=== PATIENT | male | born 1945 | race Caucasian/White ===

== ENCOUNTER 2016-08-23 10:06 | Inpatient (IN) | payer MEDICARE ==
[~2016-08-23] VITALS: Ht 177.8 cm; Wt 88.3 kg
[~2016-08-23 10:06] MED LIST changes: -ASPI1TAB69 PO; -CHEL50TA PO; -CO Q10CA; -CO Q200C3 PO; -D3400CAP PO; -DIME240C PO; -DIOV320T3 PO; -DIOV80TA4 PO; -FISH120014 PO; -FISH500C; -HYDR-3583 PO; -MOBI7.5T PO; -NEUR300C PO; -ROBA750T PO; -VITA500030 CHEW; -WALKER WHEELS/F1 MIS
[2016-08-23] MEDS ORDERED: DIME240C PO (10:36)
[2016-08-23] MEDS ORDERED: CO Q200C3 PO (10:36)
[2016-08-23] MEDS ORDERED: CHEL50TA PO (10:36)
[2016-08-23] MEDS ORDERED: D3400CAP PO (10:36)
[2016-08-23] MEDS ORDERED: FISH120014 PO (10:36)
[2016-08-23] MEDS ORDERED: DIOV320T3 PO (10:36)
[2016-08-23] MEDS ORDERED: ASPI1TAB69 PO (10:36)
[2016-08-31] MEDS ORDERED: METOPROLOL TARTRATE 25 MG TAB PO PRN (06:45)
[2016-08-31] MEDS ORDERED: INSULIN HUMAN REGULAR 1,000 UNITS/10 ML VIAL SQ PRN (06:45)
[2016-08-31] MEDS ORDERED: LACTATED RINGER'S 1000 ML IV PRN (06:45)
[2016-08-31] MEDS ORDERED: SODIUM CHLORID 0.9% 500 ML IV PRN (06:45)
[2016-08-31] MEDS ORDERED: POVIDONE IODINE 5% (ANTISEPSIS KIT) 4 APPLICATIONS EACH NARE PRN (06:45)
[2016-08-31] MEDS ORDERED: CHLORHEXIDINE GLUCONATE 2 % 1 PACK (2 CLOTHS) TOPICAL PRN (06:45)
[2016-08-31 06:50] VITALS: BP 138/73; PULSE 68; RESP 18; TEMP 97.8; O2SAT 98
[2016-08-31] MEDS: VANCOMYCIN HCL 1000 MG ON-CALL/NS 250 ML IV SCH ×4 (07:56→07:58)
[2016-08-31] MEDS ORDERED: THROMBIN (TOPICAL) 5,000 UNIT VIAL ONE (08:08)
[2016-08-31] MEDS ORDERED: ceFAZolin 2 GM PREMIX 50 ML ONE (08:08)
[2016-08-31] MEDS ORDERED: GENTAMICIN SULFATE 80 MG/2 ML VIAL ONE (08:09)
[2016-08-31] MEDS ORDERED: GELFOAM SIZE 100 ONE (08:09)
[2016-08-31] MEDS ORDERED: BUPIVACAINE/EPINEPHRINE 0.5% PF 30 ML VIAL ONE (08:09)
[2016-08-31] MEDS ORDERED: FAMOTIDINE 20 MG/2 ML VIAL ONE (08:34)
[2016-08-31] MEDS ORDERED: MIDAZOLAM HCL 2 MG/2 ML VIAL ONE (08:34)
[2016-08-31] MEDS ORDERED: fentaNYL CITRATE 250 MCG/5 ML AMP ONE (12:27)
[2016-08-31] MEDS ORDERED: DO NOT ADM ANY ANTICOAGULANT DRUGS PRN (12:30)
[2016-08-31] MEDS ORDERED: ACETAMINOPHEN/HYDROcodone 325 MG/10 MG TAB PO PRN (13:00)
[2016-08-31] MEDS ORDERED: MORPHINE SULFATE 4 MG/ML INJ IV PUSH PRN (13:00)
[2016-08-31] MEDS ORDERED: cloNIDine HCL 0.1 MG TAB PO/NG PRN (13:00)
[2016-08-31] MEDS ORDERED: diphenhydrAMINE HCL 50 MG/ML VIAL IV PRN (13:00)
[2016-08-31] MEDS ORDERED: CYCLOBENZAPRINE HCL 10 MG TAB PO PRN (13:00)
[2016-08-31] MEDS ORDERED: MENTHOL LOZENGE BUCCAL PRN (13:00)
[2016-08-31] MEDS ORDERED: RESP: ALBUTEROL 2.5 MG/3 ML NEB (PRN) INH (13:00)
[2016-08-31] MEDS ORDERED: ONDANSETRON HCL 4 MG/2 ML VIAL IV PRN (13:00)
[2016-08-31] MEDS ORDERED: NALOXONE HCL 0.4 MG/ML AMP IV PRN (13:00)
[2016-08-31] MEDS ORDERED: SODIUM CHLORIDE 0.9% FLUSH 5 ML FLUSH IVF PRN (13:00)
[2016-08-31] MEDS ORDERED: NON-FORMULARY DRUG (Omega-3 Fatty Acids (Fish Oil) 1 CAP) PO SCH (13:00)
[2016-08-31] MEDS ORDERED: ACETAMINOPHEN 325 MG TAB PO PRN (13:00)
[2016-08-31] MEDS: HYDROmorphone HCL PCA 6 MG/30 ML IV SCH (13:28)
[2016-08-31] MEDS: NS + KCL 20 MEQ INJ 1,000 ML IV SCH ×2 (13:28→23:11)
[2016-08-31] MEDS: PCA - TOTAL MG DILAUDID DELIVERED PER SHIFT SCH ×2 (14:00→21:17)
[2016-08-31] MEDS: SODIUM CHLORIDE 0.9% FLUSH 5 ML FLUSH IVF SCH ×2 (14:00→21:00)
[2016-08-31] MEDS ORDERED: PROPOFOL 200 MG/20 ML AMP IV ONE (14:12)
[2016-08-31] MEDS ORDERED: NORMOSOL R INJ 1,000 ML IV ONE (14:13)
[2016-08-31] MEDS ORDERED: PHENYLEPH/NS 1000 MCG/10 ML SYR IV ONE (14:13)
[2016-08-31] MEDS ORDERED: ePHEDrine/NS 25 MG/5 ML SYR IV ONE (14:13)
[2016-08-31] MEDS ORDERED: ONDANSETRON HCL 4 MG/2 ML VIAL IV PUSH ONE (14:13)
--- NOTE | 2016-08-31 15:19 | PD.CONS ---
HPI Service [facility] Consult Requested By Neurosurgery Reason for Consult Medical management Primary Care Physician Eliu Ku MD Diagnoses: History of Present Illness 71-year-old male with a history of hypertension , chronic low back pain with an outside MRI revealing severe degenerative changes, with severe loss of the space height at L5-S1 and severe facet arthropathy at L5-S1; underwent TLIF today by neurosurgery.patient failed conservative treatment including physical therapy, antiinflammatories and muscle relaxants, as well as, epidural steroid injections . Review of Systems Other 12 systems reviewed and are negative except for the ones mentioned in history of present illness Past Family Social History Allergies: Coded Allergies: Penicillin (Verified Allergy, Severe, Anaphylaxis, 08/31/16) Past Medical History Chronic low back pain Hypertension Physical Exam Vital Signs Vital Signs Date Time Temp Pulse Resp B/P Pulse Ox O2 Delivery O2 Flow Rate FiO2 08/31/16 14:30 97.7 62 14 116/56 100 Nasal Cannula 2 08/31/16 13:45 97.7 69 12 107/59 100 Nasal Cannula 2 08/31/16 13:30 97.3 62 14 114/62 100 Nasal Cannula 2 08/31/16 13:28 14 08/31/16 13:15 96.4 64 13 118/63 100 Nasal Cannula 2 08/31/16 13:00 96.0 60 13 124/57 100 Nasal Cannula 2 08/31/16 12:45 95.3 77 13 120/56 100 08/31/16 12:35 94.4 74 11 115/57 98 Nasal Cannula 3 08/31/16 06:50 97.8 68 18 138/73 98 Physical Exam GENERAL: This is a well-nourished, well-developed patient, in no apparent distress. SKIN: No rashes, ecchymoses or lesions. Cool and dry. HEAD: Atraumatic. Normocephalic. No temporal or scalp tenderness. EYES: Pupils equal round and reactive. Extraocular motions intact. No scleral icterus. No injection or drainage. ENT: Nose without bleeding, purulent drainage or septal hematoma. Throat without erythema, tonsillar hypertrophy or exudate. Uvula midline. Airway patent. NECK: Trachea midline. No JVD or lymphadenopathy. Supple, nontender, no meningeal signs. CARDIOVASCULAR: Regular rate and rhythm without murmurs, gallops, or rubs. RESPIRATORY: Clear to auscultation. Breath sounds equal bilaterally. No wheezes , rales, or rhonchi. GASTROINTESTINAL: Abdomen soft, non-tender, nondistended. No hepato-splenomegaly , or palpable masses. No guarding. MUSCULOSKELETAL: Extremities without clubbing, cyanosis, or edema. No joint tenderness, effusion, or edema noted. No calf tenderness. Negative Homans sign bilaterally. drain in place NEUROLOGICAL: Awake and alert. Cranial nerves II through XII intact. Motor and sensory grossly within normal limits. Five out of 5 muscle strength in all muscle groups. Normal speech. Laboratory Laboratory Tests Test 08/31/16 06:55 Blood Type O POSITIVE Antibody Screen NEGATIVE Blood Bank Comment Assessment and Plan Problem List: (1) Back pain ICD Code: M54.9 Status: Acute (2) Benign hypertension ICD Code: I10 Status: Acute (3) Status post laminectomy ICD Code: Z98.89 Status: Acute Assessment and Plan 71-year-old man with Lumbar back pain Status post TLIF and management per orthopedic surgery Continue current postop care and continue to hold antiplatelet therapy PT consult to treat and eval Postprocedure DVT prophylaxis per neurosurgery Hypertension Continue Diovan BPH Currently on Flomax Hyperlipidemia Continue Lipitor DVT prophylaxis: Bilateral SCDs Code Status Full code Discussed Condition With Patient Yousuf Haskins MD August 31, 2016 15:19
[2016-08-31] MEDS: ceFAZolin 2 GM PREMIX 50 ML IV SCH ×2 (15:52→23:11)
[2016-08-31 16:00] VITALS: BP 118/61; PULSE 63; RESP 18; TEMP 97.1; O2SAT 100
[2016-08-31] MEDS ORDERED: RESP: ALBUTEROL 2.5 MG/IPRATROPIUM 0.5 MG NEB (PRN) NEB (16:00)
[2016-08-31] MEDS ORDERED: ENALAPRILAT 1.25 MG/ML VIAL IV PUSH PRN (16:00)
--- NOTE | 2016-08-31 16:42 | RADRPT ---
EXAM DATE/TIME: 08/31/2016 09:22 [facility] COMPARISON: No previous studies available for comparison. INDICATIONS : Fusion L5,S1 with screws and lisa placement., MEDICAL HISTORY : None. SURGICAL HISTORY : Discectomy, lumbar. ENCOUNTER: Initial ACUITY: 1 day PAIN SCORE: Non-responsive. LOCATION: Lumbar spine. CONCLUSION: Fluoroscopic images during fusion rods and screws L5-S1. Drain also seen. Yousuf Brennan MD on August 31, 2016 at 16:39 Board Certified Radiologist. This report was verified electronically.
--- NOTE | 2016-08-31 16:47 | PD.OP ---
Operative Report Date of Surgery: August 31, 2016 Preoperative Diagnosis: Lumbar sondylosis Postoperative Diagnosis: Lumbar sondylosis Procedure: Redo L5-S1 redo laminectomy, L4-5 instrumental fixation using transpedicular screws and rods, L5-S1 posterolateral fusion using autologous bone graft and rods. Microsurgical dissection Anesthesia: general Surgeon: Reji Sanders Surveyor Instrument Assistant(s): Lucia Londono Operation and Findings: INDICATIONS FOR THE SURGICAL PROCEDURE Mr Trinidad is a 71 year-old male who presented with intractable mechanical back pain and beatrice evidence of left S1 lower extremity radiculopathy. The patient has failed maximum nonsurgical management including multiple modalities of conservative treatment as well as pain management interventions by an interventional pain specialist. A surgical decompression and arthrodhesis were indicated as a last resort. The [id number]-gt-[id number] details of the procedure, indications, alternatives, risks and potential complications were fully discussed with the patient. The patient fully understood. All his questions were answered. No guarantees were given. The patient voiced requesting the procedure and provided informed consents. He was offered the alternative of delaying the procedure and continuing with nonsurgical management. DETAILS OF THE SURGICAL PROCEDURE Prior to the procedure, the surgical incision was marked in the preoperative surgical holding room, and the procedure, risks, and potential complications revisited with the patient. Placement of electrodes for intraoperative neurophysiological monitoring was completed. The patient was taken to the operative room, and following induction of general anesthesia, endotracheal intubation was performed. A Garcia catheter, bilateral AMANDA hose and sequential compression devices were placed and kept throughout the procedure. The patient was positioned prone, over a Nasir table over a Jitendra frame. All pressure in the preoperative surgical holding room points were carefully padded with eggcrate and gel mattress. The eyes were tapped shut after ointment was applied by the anesthesiologist to prevent corneal abrasion. A Lynne hugger was placed over the exposed lower body to maintain control of the core body temperature. The electrophysiological team placed the needles and electrodes in their proper location and baseline SSEP's and motor evoked potentials were registered. The entrance to each pedicles was marked using a C arm. The lumbar region was prepped and draped in the usual sterile fashion. The surgical procedure was performed in several steps as follow: SURGICAL APPROACH Once the patient was positioned, a localizing cross-table lateral x-ray was performed with a C-arm. Two paramedian small incisions were outlined on the skin approximately 3cm from the midline. The skin incisions were made with a # 10 blade. Small bleeders were controlled with the cautery. The dissection was then carried out into deper planes and through the thoracolumbar fascia with a Bovie. The intermuscular septum was identified and the muscles were blunted dissected along the septum. The facets and transverse process of L5 and S1 were exposed and the proper anatomical landmarks were identified. A microsurgical self-retaining retractor was placed on the incision, and a localizing lateralizing cross-table x-ray was performed with an instrument underneath a lamina of the lumbar spine. There was a bilateral pars defect with gross instability of the bony structures. INSTRUMENTAL FIXATION At this point in the procedure, placement of bilateral transpedicular screws was necessary for stabilization of the spine. Initially, the entry point for the screw was selected anatomically at the junction of the facet, with the transverse process, and the pars interarticularis at L5 and at the sacrum. This was started with a TPS drill, using a 5mm cutting prabhjot, followed by the use of an awl, and then a pedicle finder. A ball-tip sounder was used to ensure the integrity of the trajectory. A tap was used to create the threads for the screws, and the trajectory was again reassessed with a ball-tip sounder. Finally bilateral transpedicular screws were carefully placed bilaterally at L5 and S1 under simultaneous AP and lateral continuous fluoroscopic visualization. An appropriate purchase was achieved with all screws. The position of each screw was assessed anatomically with an AP, lateral , oblique Xrays. An intraoperative scan view of the spine was then performed using the iso-centric c-arm. Each screw was then assessed electrophysiologically with a nerve stimulator. SURGICAL DECOMPRESSION There was significant compression of the neural structures on the left side. In order to relieve neural compression, it was necessary to perform a decompressive laminectomy, with decompression of the spinal canal and bilateral lateral recesses. Note that the scope of such decompression was significantly more extensive than the minimal exposure necessary to perform an interbody fusion, as there was extreme facet arthropathy with near complete collapse of the disk spaces and severe stenosis cause by the hypertrophic joint facets. At this point of the procedure the operative microscope was draped in the usual sterile fashion and brought to the field. The rest of the surgical procedure was performed using microdissection technique with the exception of the closure. Under the operating microscope, a decompressive laminectomy was carried out on the left side at L5-S1 as follow: The laminae, base of the spinous processes and facets were carefully drilled exposing the ligamentum flavum. The facets were abnormal with a bilateral pars defect and gross mechanical instability. A disk protusion was seen compressing the exiting S1 nerve root. The ligamentum flavum appeared hypertrophic, resulting on mass effect on the dorsal surface of the neural structures. The superior free border of the ligamentum flavum was elevated with a ligament dissector and the ligamentum flavum was removed with a 3 and 4 mm Kerrison forceps. The ligament was very adherent to the dural sac and during the dissection, ans extreme care was taken during the dissection. The L5 and S1 exiting nerve roots were identified, the patient had a conjointednerve root. A foraminotomy was performed with a Kerrison in their trajectory towards the neural foramen. Epidural veins located laterally to the dural sac were coagulated with the bipolar cautery, and then incised using microscissors. Gentle medial retraction of the dural sac allowed me to expose the disc space for the discectomy. Upon completion of the discectomy, an excellent decompression of the neural structures was achieved. Increased motion was noted thorough the procedure, which was consistent with mechanical instability. INTERBODY ARTHRODHESIS At this point of the procedure, the annulus fibrosus of the disk was carefully coagulated with a bipolar cautery and incised using an 11 bladed knife. Then, a microdiscectomy was carried out in a standard fashion. Again, due to the presence of a coinjointed nerve root, there was no enough space to place a cage for the interbody fusion, depite maximun effort. The decompression was again assessed anatomically with a probe POSTEROLATERAL FUSION The posterolateral fusion is a critical component to the procedure, to prevent future fatigue and failure of the instrumental fixation. Initially, the transverse processes of the vertebral bodies, lateral surface of the facets and the lateral gutters of the spine were carefully cleaned, eliminating all soft tissue and muscle attachments. The area was then irrigated with a large amount of antibiotic solution. Subsequently, the transverse processes, lateral surface of the facets, and lateral gutters of the spine were thoroughly decorticated using the TPS drill with a 5mm cutting prabhjot, exposing cancellous bone, in preparation for the posterolateral fusion. The incision was again irrigated with antibiotic solution. Then, the posterolateral fusion was then performed by carefully packing the lateral gutters of the spine at L5-S1 with autologous bone combined with demineralized bone matrix. I packed as much bone as possible. COMPLETION OF THE INSTRUMENTATION AND CLOSURE The rods were brought to the field, applied to all the screws, and the screw caps were sequentially applied. Compression was performed between the pedicle screws, and final tightening of the screws was completed using a torque wrench. The incision was again thoroughly irrigated with several liters of antibiotic solution, and hemostasis secured with the bipolar cautery. A Valsalva Maneuver performed by the anesthesiologist failed to show any evidence of cerebrospinal fluid leak or bleeding. A 7 mm Nasir-Santana drain was left in the epidural space and externalized through a separate stab incision. The incision was then closed in planes. 0 Vicryl was used in an interrupted fashion to close the thoracolumbar fascia and the superficial fascia. The subcutaneous tissue was then approximated using 3-0 Vicryl in an interrupted fashion. Special care was taken to avoid space. The skin was then closed with 4-0 Vicryl in a running, subcuticular fashion. Each plane of closure was irrigated with antibiotic solution. At the end of the procedure the sponge, needle and instrument counts were all correct. Estimated blood loss was 200 cc. No blood transfusion was given. The entire procedure was performed using continuous electrophysiological monitoring of the somatosensorial evoked potentials and EMG. The patient received prophylactic antibiotics. The patient was then extubated and transferred to the recovery room in stable condition. Reji Sanders MD August 31, 2016 16:46
[2016-08-31 20:36] VITALS: BP 115/57; PULSE 88; RESP 18; TEMP 98.3; O2SAT 97
[2016-08-31] MEDS ORDERED: DIMETHYL FUMARATE 240 MG PO SCH (21:00)
[2016-08-31] MEDS: DOCUSATE SODIUM 100 MG CAP PO SCH (21:14)
[2016-08-31] MEDS: TAMSULOSIN HCL 0.4 MG CAP PO SCH (21:14)
[2016-08-31] MEDS: MAGNESIUM HYDROXIDE SUSP 30 ML CUP PO PRN (21:17)
[2016-09-01] VITALS (8 sets, daily range): BP systolic 111–130; BP diastolic 53–62; PULSE 82–96; RESP 17–18; TEMP 97.8–101; O2SAT 4–97
[2016-09-01] MEDS: HYDROmorphone HCL PCA 6 MG/30 ML IV SCH ×2 (00:55→18:44)
[2016-09-01] MEDS: PCA - TOTAL MG DILAUDID DELIVERED PER SHIFT SCH ×2 (06:00→22:00)
[2016-09-01] MEDS: SODIUM CHLOR 0.9% 1000 ML INJ 1,000 ML IV SCH (06:31)
[2016-09-01 07:04] LABS: AUTOMATED NEUTROPHIL # 4.8 TH/MM3 (1.8-7.7); BASOPHIL % 0.4 % (0.0-2.0); EOSINOPHIL # 0.1 TH/MM3 (0-0.4); EOSINOPHIL % 1.6 % (0.0-4.0); HEMATOCRIT 31.8 % (39.0-51.0); HEMO FLAGS DIFF FINAL; LYMPH % 9.7 % (9.0-44.0); LYMPHOCYTE # 0.6 TH/MM3 (1.0-4.8); MEAN CELL VOLUME 89.6 FL (80.0-100.0); MEAN CORPUSCULAR HEMOGLOBIN 30.7 PG (27.0-34.0); MEAN CORPUSCULAR HGB CONC 34.3 % (32.0-36.0); MONO % 11.5 % (0.0-8.0); NEUT % 76.8 % (16.0-70.0); PLATELET COUNT 181 TH/MM3 (150-450); RED BLOOD COUNT 3.55 MIL/MM3 (4.50-5.90); WHITE BLOOD COUNT 6.3 TH/MM3 (4.0-11.0)
[2016-09-01 07:26] LABS: BICARBONATE 27.3 MEQ/L (21.0-32.0); POTASSIUM 4.5 MEQ/L (3.5-5.1)
[2016-09-01] MEDS: HYDROCHLOROTHIAZIDE 12.5 MG CAP PO SCH (08:18)
[2016-09-01] MEDS: MAGNESIUM HYDROXIDE SUSP 30 ML CUP PO PRN ×2 (08:18→22:09)
[2016-09-01] MEDS: VALSARTAN 160 MG TAB PO SCH (08:19)
[2016-09-01] MEDS: TAMSULOSIN HCL 0.4 MG CAP PO SCH ×2 (08:20→22:08)
[2016-09-01] MEDS: MULTIVITAMIN TAB PO SCH (08:21)
[2016-09-01] MEDS: CHOLECALCIFEROL (VIT D3) 400 UNIT TAB PO SCH (08:21)
[2016-09-01] MEDS: ACETAMINOPHEN/HYDROcodone 325 MG/10 MG TAB PO PRN ×2 (08:21→18:41)
[2016-09-01] MEDS: DOCUSATE SODIUM 100 MG CAP PO SCH ×2 (08:21→22:08)
[2016-09-01] MEDS: PRAVASTATIN SOD 40 MG TAB PO SCH (08:21)
[2016-09-01] MEDS: PANTOPRAZOLE SODIUM 40 MG VIAL IVP SCH (08:22)
[2016-09-01] MEDS: ceFAZolin 2 GM PREMIX 50 ML IV SCH (08:31)
[2016-09-01] MEDS ORDERED: MAGNESIUM PO SCH (09:00)
[2016-09-01] MEDS ORDERED: NON-FORMULARY DRUG (Zinc Gluconate (Zinc) 1 TAB) PO SCH (09:00)
[2016-09-01] MEDS ORDERED: COENZYME Q10 PO SCH (09:00)
[2016-09-01] MEDS ORDERED: HYDR-3583 PO (09:07)
--- NOTE | 2016-09-01 10:15 | HHI.NSPN ---
(Manuela Irby) Note Status Status: Progress Note (Manuela Irby) Interval History Interval History Mr. Trinidad underwent a redo L5-S1 redo laminectomy, L4-5 instrumental fixation using transpedicular screws and rods. 09/01: Doing well, pain currently controlled. Reports he has a history of urinary retention postop due to BPH. (Manuela Irby) Labs, Micro, & Vital Signs Results Date Time Temp Pulse Resp B/P Pulse Ox O2 Delivery O2 Flow Rate FiO2 09/01/16 08:00 100.4 87 18 115/54 93 09/01/16 06:00 17 09/01/16 04:08 99.2 86 17 112/53 97 09/01/16 00:55 18 09/01/16 00:00 99.1 84 18 111/54 96 08/31/16 21:17 18 08/31/16 20:36 98.3 88 18 115/57 97 08/31/16 19:06 Room Air 08/31/16 16:00 97.1 63 18 118/61 100 08/31/16 14:30 97.7 62 14 116/56 100 Nasal Cannula 2 08/31/16 13:45 97.7 69 12 107/59 100 Nasal Cannula 2 08/31/16 13:30 97.3 62 14 114/62 100 Nasal Cannula 2 08/31/16 13:28 14 08/31/16 13:15 96.4 64 13 118/63 100 Nasal Cannula 2 08/31/16 13:00 96.0 60 13 124/57 100 Nasal Cannula 2 08/31/16 12:45 95.3 77 13 120/56 100 08/31/16 12:35 94.4 74 11 115/57 98 Nasal Cannula 3 09/01/16 07:00 Intake Total 5545 ml Output Total 2410 ml Balance 3135 ml Constitutional Vital Signs Date Time Temp Pulse Resp B/P Pulse Ox O2 Delivery O2 Flow Rate FiO2 09/01/16 08:00 100.4 87 18 115/54 93 09/01/16 06:00 17 09/01/16 04:08 99.2 86 17 112/53 97 09/01/16 00:55 18 09/01/16 00:00 99.1 84 18 111/54 96 08/31/16 21:17 18 08/31/16 20:36 98.3 88 18 115/57 97 08/31/16 19:06 Room Air 08/31/16 16:00 97.1 63 18 118/61 100 08/31/16 14:30 97.7 62 14 116/56 100 Nasal Cannula 2 08/31/16 13:45 97.7 69 12 107/59 100 Nasal Cannula 2 08/31/16 13:30 97.3 62 14 114/62 100 Nasal Cannula 2 08/31/16 13:28 14 08/31/16 13:15 96.4 64 13 118/63 100 Nasal Cannula 2 08/31/16 13:00 96.0 60 13 124/57 100 Nasal Cannula 2 08/31/16 12:45 95.3 77 13 120/56 100 08/31/16 12:35 94.4 74 11 115/57 98 Nasal Cannula 3 09/01/16 07:00 Intake Total 5545 ml Output Total 2410 ml Balance 3135 ml (Manuela Irby) Review of Systems/Exam Exam Mr. Trinidad is alert, awake and oriented to time, place and person. Speech is appropriate. Wound is clean with dressing in place. NICOLAS with minimal drainage. Cranial nerve examination: pupils to be equal, round and reactive to light. Extra-ocular movements are intact. Facial motor are normal and symmetrical. Neck is soft and supple with a good range of motion without pain. 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 There is a bilateral plantar flexion response. (Manuela Irby) Medications Current Medications Current Medications Medications (Trade) Dose Ordered Sig/Zander Route PRN Reason Start Time Stop Time Status Last Admin Dose Admin Sodium Chloride (NS 1000 ml Inj) 1,000 ml @ 30 mls/hr Q24H IV 08/31/16 06:45 Miscellaneous Information ALL NURSING DEPARTME... UNSCH PRN .XX SEE LABEL COMMENTS 08/31/16 12:30 09/01/16 12:29 Potassium Chloride/Sodium Chloride (NS + KCl 20 Meq Inj) 1,000 ml @ 100 mls/hr Q10H IV 08/31/16 14:00 08/31/16 23:11 IV Flush (NS Flush) 2 ml UNSCH PRN IVF FLUSH AFTER USING IV ACCESS 08/31/16 13:00 IV Flush (NS Flush) 2 ml BID IVF 08/31/16 14:00 08/31/16 21:00 Docusate Sodium (Colace) 100 mg BID PO 08/31/16 21:00 09/01/16 08:21 Magnesium Hydroxide (Milk Of Magnesia Liq) 30 ml DAILY PRN PO CONSTIPATION 08/31/16 13:00 09/01/16 08:18 Pantoprazole Sodium (Protonix Inj) 40 mg DAILY IVP 09/01/16 09:00 09/01/16 08:22 Ondansetron HCl (Zofran Inj) 4 mg Q6H PRN IV NAUSEA OR VOMITING 08/31/16 13:00 Morphine Sulfate (Morphine Inj) 2 mg Q4HR PRN IV PUSH breakthrough pain 08/31/16 13:00 Cyclobenzaprine HCl (Flexeril) 10 mg Q8H PRN PO MUSCLE SPASM 08/31/16 13:00 09/01/16 08:20 Clonidine (Catapres) 0.1 mg Q6H PRN PO/NG SYS BP GREATER THAN 170 MMHG 08/31/16 13:00 Acetaminophen (Tylenol) 650 mg Q4H PRN PO TEMPERATURE > 101.5 F 08/31/16 13:00 Menthol ([place] Callum) 1 lozenge UNSCH PRN BUCCAL SORE THROAT 08/31/16 13:00 Naloxone HCl (Narcan Inj) 0.4 mg UNSCH PRN IV RESPIRATORY RATE LESS THAN 10 08/31/16 13:00 Diphenhydramine HCl (Benadryl Inj) 25 mg Q6H PRN IV ITCHING 08/31/16 13:00 Hydromorphone HCl (Dilaudid GLASS FORMING ENGINEER Inj) 6 mg UNSCH IV 08/31/16 13:00 09/01/16 00:55 GLASS FORMING ENGINEER Dosage Infused (Pha) 1 Q8HR .XX 08/31/16 14:00 09/01/16 06:00 Acetaminophen/ Hydrocodone Bitart ([place] 10-325 Mg) 1 tab Q4H PRN PO PAIN SCALE 1 TO 5 08/31/16 13:00 Acetaminophen/ Hydrocodone Bitart ([place] 10-325 Mg) 2 tab Q4H PRN PO PAIN SCALE 6 TO 10 08/31/16 13:00 09/01/16 08:21 Tamsulosin HCl (Flomax) 0.8 mg BID PO 08/31/16 21:00 09/01/16 08:20 Cholecalciferol (Vitamin D3) 200 units DAILY PO 09/01/16 09:00 09/01/16 08:21 Patient Own Medication DIMETHYL FUMARATE (TECFIDE... BID PO 08/31/16 21:00 Hold Multivitamins (Theragran) 1 tab DAILY PO 09/01/16 09:00 09/01/16 08:21 Pravastatin Sodium (Pravachol) 40 mg DAILY PO 09/01/16 09:00 09/01/16 08:21 Valsartan (Diovan) 320 mg DAILY PO 09/01/16 09:00 09/01/16 08:19 Hydrochlorothiazide (Microzide) 12.5 mg DAILY PO 09/01/16 09:00 09/01/16 08:18 Enalaprilat (Vasotec Inj) 1.25 mg Q6H PRN IV PUSH SBP>160, DBP>90 08/31/16 16:00 (Manuela Irby) Medical Decision Making MDM Remarks 71 y/o male s/p L5-S1 PLIF 08/31/16, POD 1, surgical pain controlled, stable (Manuela Irby) Plan Plan Remarks cont dilauded steam table attendant, oral lortab prns IS every hour PT, LSO when out of bed dc bernabe catheter for voiding trial, bladder scan and straight cath prn Protonix for stress proph, SCDs and AMANDA for dvt prophylaxis (Manuela Irby) Attending Statement The exam, history, and the medical decision-making described in the above note were completed with the assistance of the mid-level provider. I reviewed and agree with the findings presented. I attest that I had a [id number] encounter with the patient on the same day, and personally performed and documented my assessment and findings in the medical record. (Reji Sanders MD) Manuela Irby September 01, 2016 10:15 Reji Sanders MD September 02, 2016 11:13
[2016-09-01] MEDS: NS + KCL 20 MEQ INJ 1,000 ML IV SCH ×2 (11:24→22:09)
--- NOTE | 2016-09-01 12:21 | HHI.PR ---
Subjective Remarks Patient seen and examined Currently pain control with CPR INSTRUCTOR Dilaudid Patient able to ambulate by the bedside Objective Vitals Vital Signs Date Time Temp Pulse Resp B/P Pulse Ox O2 Delivery O2 Flow Rate FiO2 09/01/16 11:23 4 21 09/01/16 09:45 18 09/01/16 08:20 Room Air 09/01/16 08:00 100.4 87 18 115/54 93 09/01/16 06:00 17 09/01/16 04:08 99.2 86 17 112/53 97 09/01/16 00:55 18 09/01/16 00:00 99.1 84 18 111/54 96 08/31/16 21:17 18 08/31/16 20:36 98.3 88 18 115/57 97 08/31/16 19:06 Room Air 08/31/16 16:00 97.1 63 18 118/61 100 08/31/16 14:30 97.7 62 14 116/56 100 Nasal Cannula 2 08/31/16 13:45 97.7 69 12 107/59 100 Nasal Cannula 2 08/31/16 13:30 97.3 62 14 114/62 100 Nasal Cannula 2 08/31/16 13:28 14 08/31/16 13:15 96.4 64 13 118/63 100 Nasal Cannula 2 08/31/16 13:00 96.0 60 13 124/57 100 Nasal Cannula 2 08/31/16 12:45 95.3 77 13 120/56 100 08/31/16 12:35 94.4 74 11 115/57 98 Nasal Cannula 3 I/O 08/31/16 08/31/16 08/31/16 09/01/16 09/01/16 09/01/16 07:00 15:00 23:00 07:00 15:00 23:00 Intake Total 3050 ml 1011 ml 1484 ml Output Total 1210 ml 490 ml 710 ml Balance 1840 ml 521 ml 774 ml Intake Oral 875 ml 360 ml 720 ml IV Total 175 ml 651 ml 764 ml Other 2000 ml Output Urine Total 975 ml 450 ml 700 ml Drainage Total 35 ml 40 ml 10 ml Estimated Blood Loss 200 ml # Bowel Movements 0 0 Result Diagram: 09/01/16 0646 09/01/16 0646 Imaging Last Impressions Cervical Spine X-Ray 08/31/16 0000 Signed Impressions: Service Date/Time: Wednesday, August 31, 2016 09:22 - CONCLUSION: Fluoroscopic images during fusion rods and screws L5-S1. Drain also seen. Yousuf Brennan MD Objective Remarks GENERAL: NAD and sitting in a chair SKIN: Warm and dry. HEAD: Normocephalic. EYES: No scleral icterus. No injection or drainage. NECK: Supple, trachea midline. No JVD or lymphadenopathy. CARDIOVASCULAR: Regular rate and rhythm without murmurs, gallops, or rubs. RESPIRATORY: Breath sounds equal bilaterally. No accessory muscle use. GASTROINTESTINAL: Abdomen soft, non-tender, nondistended. MUSCULOSKELETAL: No cyanosis, or edema. TLSO brace in place BACK: Nontender without obvious deformity. No CVA tenderness. A/P Problem List: (1) Back pain ICD Code: M54.9 Status: Acute (2) Benign hypertension ICD Code: I10 Status: Acute (3) Status post laminectomy ICD Code: Z98.89 Status: Acute Assessment and Plan 71-year-old man with Lumbar back pain Status post TLIF and management per orthopedic surgery Continue current postop care and continue to hold antiplatelet therapy PT to treat and eval. TLSO brace while out of Bed Encourage IS use Hypertension Continue Diovan BPH Currently on Flomax Hyperlipidemia Continue Lipitor DVT prophylaxis: Bilateral SCDs Yousuf Haskins MD September 01, 2016 12:21
[2016-09-01] MEDS: SODIUM CHLORIDE 0.9% FLUSH 5 ML FLUSH IVF SCH (21:00)
[2016-09-01] MEDS ORDERED: BISACODYL 10 MG SUPP RECTAL ONE (21:00)
[2016-09-02 04:15] VITALS: BP 137/63; PULSE 84; RESP 19; TEMP 98.6; O2SAT 97
[2016-09-02] MEDS: PCA - TOTAL MG DILAUDID DELIVERED PER SHIFT SCH (06:00)
[2016-09-02] MEDS: NS + KCL 20 MEQ INJ 1,000 ML IV SCH (06:19)
[2016-09-02] MEDS: ACETAMINOPHEN/HYDROcodone 325 MG/10 MG TAB PO PRN ×2 (06:19→13:20)
[2016-09-02] MEDS: SODIUM CHLOR 0.9% 1000 ML INJ 1,000 ML IV SCH (06:45)
--- NOTE | 2016-09-02 08:57 | HHI.DCPOC ---
Discharge Care Plan Diagnosis: (1) S/P lumbar spinal fusion Goals to Promote Your Health * To prevent worsening of your condition and complications * To maintain your health at the optimal level Directions to Meet Your Goals Take your medications as prescribed Follow your dietary instruction Follow activity as directed Keep your appointments as scheduled Take your immunizations and boosters as scheduled If your symptoms worsen call your PCP, if no PCP go to Urgent Care Center or Emergency Room Smoking is Dangerous to Your Health. Avoid second hand smoke Call the 24-hour hour crisis hotline for domestic abuse at Manuela Irby September 02, 2016 08:57
--- NOTE | 2016-09-02 08:58 | HHI.FF ---
Face to Face Verification Diagnosis: (1) S/P lumbar spinal fusion Physical Therapy Order: Improve ambulation Home Health Nursing Order: Medical education Signs/symptoms of disease process Wound care and dressing changes Nursing assessment with vital signs I have seen patient Spencer Trinidad on 09/02/16. My clinical findings support the need for the requested home health care services because: Deconditioned w/ increased weakness High risk of falls I certify that my clinical findings support that this patient is homebound because: Post-op weakness Unsteady gait/balance Manuela Irby September 02, 2016 08:58
[2016-09-02] MEDS: SODIUM CHLORIDE 0.9% FLUSH 5 ML FLUSH IVF SCH (09:00)
[2016-09-02] MEDS ORDERED: WALKER WHEELS/F1 MIS (09:00)
[2016-09-02] MEDS: CHOLECALCIFEROL (VIT D3) 400 UNIT TAB PO SCH (09:11)
[2016-09-02] MEDS: TAMSULOSIN HCL 0.4 MG CAP PO SCH (09:11)
[2016-09-02] MEDS: MULTIVITAMIN TAB PO SCH (09:11)
[2016-09-02] MEDS: HYDROCHLOROTHIAZIDE 12.5 MG CAP PO SCH (09:12)
[2016-09-02] MEDS: DOCUSATE SODIUM 100 MG CAP PO SCH (09:12)
[2016-09-02] MEDS: VALSARTAN 160 MG TAB PO SCH (09:13)
[2016-09-02] MEDS: PRAVASTATIN SOD 40 MG TAB PO SCH (09:13)
[2016-09-02] MEDS: PANTOPRAZOLE SODIUM 40 MG VIAL IVP SCH (09:13)
[2016-09-02 10:09] VITALS: BP 127/65; PULSE 107; RESP 16; TEMP 98.9; O2SAT 93
--- NOTE | 2016-09-02 10:48 | HHI.DS ---
Discharge Summary Admission Date August 31, 2016 at 06:20 Discharge Date: September 02, 2016 Admitting Diagnosis s/p lumbar fusion (1) Back pain ICD Code: M54.9 (2) Benign hypertension ICD Code: I10 (3) Status post laminectomy ICD Code: Z98.89 Brief History Mr Trinidad is a 71 year-old male who presented with intractable mechanical back pain and beatrice evidence of left S1 lower extremity radiculopathy. The patient has failed maximum nonsurgical management including multiple modalities of conservative treatment as well as pain management interventions by an interventional pain specialist. A surgical decompression and arthrodhesis were indicated as a last resort. CBC/BMP: 09/01/16 0646 09/01/16 0646 Significant Findings Laboratory Tests Test 09/01/16 06:46 Red Blood Count 3.55 MIL/MM3 (4.50-5.90) Hemoglobin 10.9 GM/DL (13.0-17.0) Hematocrit 31.8 % (39.0-51.0) Neutrophils (%) (Auto) 76.8 % (16.0-70.0) Monocytes (%) (Auto) 11.5 % (0.0-8.0) Lymphocytes # (Auto) 0.6 TH/MM3 (1.0-4.8) Creatinine 1.34 MG/DL (0.60-1.30) Estimat Glomerular Filtration 53 ML/MIN (>89) Rate Random Glucose 124 MG/DL (74-106) Calcium Level 7.9 MG/DL (8.5-10.1) Imaging Last Impressions Cervical Spine X-Ray 08/31/16 0000 Signed Impressions: Service Date/Time: Wednesday, August 31, 2016 09:22 - CONCLUSION: Fluoroscopic images during fusion rods and screws L5-S1. Drain also seen. Yousuf Brennan MD Hospital Course Mr. Trinidad underwent a redo L5-S1 redo laminectomy, L4-5 instrumental fixation using transpedicular screws and rods, L5-S1 posterolateral fusion using autologous bone graft and rods, microsurgical dissection on August 31, 2016. His pain was managed with OFFEND[employer]OB RETENTION SPECIALIST pump that was subsequently weaned off. His surgical pain was tolerable on oral pain medications. He was discharged home in stable conditions. Wound care and activity restrictions were discussed. Pt Condition on Discharge: Stable Discharge Disposition: Disch w/ Home Health Serv Discharge Instructions DIET: Follow Instructions for: Heart Healthy Diet ACTIVITIES You can perform: Weight Bearing As Mary ADDITIONAL Activity Instructio: Avoid strenuous activities, heavy lifting, overhead activities, repetitive bending, twisting, pushing, pulling or any activities which might result in stress over the spine. Avoid situtation that will put at risk for falls. Use assistive device as needed for walking. Wear LSO brace when out of bed. New Medications: Walker with Front Wheels (Walker with Front Wheels) 1 Mis Mis 1 EA .ROUTE DIRECTED #1 Ref 0 EA Hydrocodone-Acetaminophen (Hydrocodone-Acetaminophen) 10-325 mg Tab 1 TAB PO Q8HR PRN PAIN SCALE 1 TO 10 #90 Ref 0 TAB Continued Medications: Aspirin (Aspirin) 81 Mg Tabdr 81 MG PO DAILY TAB Cholecalciferol (D3) 400 Unit Cap 200 UNIT PO DAILY Coenzyme Q10 (Ubidecarenone) (Co Q10) 200 Mg Cap 1 CAP PO DAILY Dimethyl Fumarate (Tecfidera) 240 Mg Cap 240 MG PO BID Multiple sclerosis #60 Ref 0 CAP Magnesium (Magnesium) 250 Mg Tab 1 TAB PO DAILY Multiple Vitamin (Multivitamins) 1 Cap Cap 1 CAP PO DAILY Hazard-3 Fatty Acids (Fish Oil) 1,200 Mg Cap 1 CAP PO M,F Simvastatin (Zocor) 20 Mg Tab 20 MG PO DAILY Cholesterol Management #30 Ref 0 TAB Tamsulosin (Flomax) 0.4 Mg Cap 0.8 MG PO BID Manage Prostate Problems #30 Ref 0 CAP Tramadol (Ultram) 50 Mg Tab 100 MG PO Q12HR PRN PAIN #60 Ref 0 TAB Valsartan-Hydrochlorothiazide (Diovan Hct) 320-12.5 Mg Tab 1 TAB PO DAILY Blood Pressure Management #30 Ref 0 TAB Zinc Gluconate (Zinc) 50 Mg Tab 1 TAB PO DAILY Manuela Irby September 02, 2016 10:48
--- NOTE | 2016-09-02 10:52 | HHI.NSPN ---
(Manuela Irby) Note Status Status: Progress Note (Manuela Irby) Interval History Interval History Mr. Trinidad underwent a redo L5-S1 redo laminectomy, L4-5 instrumental fixation using transpedicular screws and rods. 09/01: Doing well, pain currently controlled. Reports he has a history of urinary retention postop due to BPH. 09/02: able to urinate, pain controlled on oral medications, not using CERTIFIED HYPERBARIC TECHNOLOGIST. requesting to go home today. (Manuela Irby) Labs, Micro, & Vital Signs Results Date Time Temp Pulse Resp B/P Pulse Ox O2 Delivery O2 Flow Rate FiO2 09/02/16 10:09 98.9 107 16 127/65 93 09/02/16 06:00 18 09/02/16 04:15 98.6 84 19 137/63 97 09/01/16 23:38 98.7 82 18 117/60 95 09/01/16 22:00 18 09/01/16 20:36 97.8 96 18 130/62 97 09/01/16 19:25 18 09/01/16 18:44 16 09/01/16 16:00 101.0 90 18 119/60 96 09/01/16 12:00 98.8 88 18 113/60 95 09/01/16 11:23 4 21 09/02/16 07:00 Intake Total 2990 ml Output Total 1115 ml Balance 1875 ml Constitutional Vital Signs Date Time Temp Pulse Resp B/P Pulse Ox O2 Delivery O2 Flow Rate FiO2 09/02/16 10:09 98.9 107 16 127/65 93 09/02/16 06:00 18 09/02/16 04:15 98.6 84 19 137/63 97 09/01/16 23:38 98.7 82 18 117/60 95 09/01/16 22:00 18 09/01/16 20:36 97.8 96 18 130/62 97 09/01/16 19:25 18 09/01/16 18:44 16 09/01/16 16:00 101.0 90 18 119/60 96 09/01/16 12:00 98.8 88 18 113/60 95 09/01/16 11:23 4 21 09/02/16 07:00 Intake Total 2990 ml Output Total 1115 ml Balance 1875 ml (Manuela Irby) Review of Systems/Exam Exam Mr. Trinidad is alert and oriented x 3. Sitting up in chair with LSO brace, comfortable. Wound is clean with dressing in place. NICOLAS with minimal drainage. Cranial nerve examination: pupils to be equal, round and reactive to light. Extra-ocular movements are intact. Facial motor are normal and symmetrical. Neck is soft and supple with a good range of motion without pain. 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 There is a bilateral plantar flexion response. (Manuela Irby) Medications Current Medications Current Medications Medications (Trade) Dose Ordered Sig/Zander Route PRN Reason Start Time Stop Time Status Last Admin Dose Admin Sodium Chloride 1,000 ml @ 30 mls/hr Q24H IV 08/31/16 06:45 Potassium Chloride/Sodium Chloride (NS + KCl 20 Meq Inj) 1,000 ml @ 100 mls/hr Q10H IV 08/31/16 14:00 09/02/16 06:19 IV Flush (NS Flush) 2 ml UNSCH PRN IVF FLUSH AFTER USING IV ACCESS 08/31/16 13:00 IV Flush (NS Flush) 2 ml BID IVF 08/31/16 14:00 09/02/16 09:00 Docusate Sodium (Colace) 100 mg BID PO 08/31/16 21:00 09/02/16 09:12 Magnesium Hydroxide (Milk Of Magnesia Liq) 30 ml DAILY PRN PO CONSTIPATION 08/31/16 13:00 09/01/16 22:09 Pantoprazole Sodium (Protonix Inj) 40 mg DAILY IVP 09/01/16 09:00 09/02/16 09:13 Ondansetron HCl (Zofran Inj) 4 mg Q6H PRN IV NAUSEA OR VOMITING 08/31/16 13:00 Morphine Sulfate (Morphine Inj) 2 mg Q4HR PRN IV PUSH breakthrough pain 08/31/16 13:00 Cyclobenzaprine HCl (Flexeril) 10 mg Q8H PRN PO MUSCLE SPASM 08/31/16 13:00 09/01/16 08:20 Clonidine (Catapres) 0.1 mg Q6H PRN PO/NG SYS BP GREATER THAN 170 MMHG 08/31/16 13:00 Acetaminophen (Tylenol) 650 mg Q4H PRN PO TEMPERATURE > 101.5 F 08/31/16 13:00 Menthol (Gilbert Callum) 1 lozenge UNSCH PRN BUCCAL SORE THROAT 08/31/16 13:00 Naloxone HCl (Narcan Inj) 0.4 mg UNSCH PRN IV RESPIRATORY RATE LESS THAN 10 08/31/16 13:00 Diphenhydramine HCl (Benadryl Inj) 25 mg Q6H PRN IV ITCHING 08/31/16 13:00 Hydromorphone HCl (Dilaudid CERTIFIED HYPERBARIC TECHNOLOGIST Inj) 6 mg UNSCH IV 08/31/16 13:00 09/03/16 06:00 09/01/16 18:44 CERTIFIED HYPERBARIC TECHNOLOGIST Dosage Infused (Pha) 1 Q8HR .XX 08/31/16 14:00 09/02/16 06:00 Acetaminophen/ Hydrocodone Bitart (Sharon 10-325 Mg) 1 tab Q4H PRN PO PAIN SCALE 1 TO 5 08/31/16 13:00 Acetaminophen/ Hydrocodone Bitart (Sharon 10-325 Mg) 2 tab Q4H PRN PO PAIN SCALE 6 TO 10 08/31/16 13:00 09/02/16 06:19 Tamsulosin HCl (Flomax) 0.8 mg BID PO 08/31/16 21:00 09/02/16 09:11 Cholecalciferol (Vitamin D3) 200 units DAILY PO 09/01/16 09:00 09/02/16 09:11 Patient Own Medication DIMETHYL FUMARATE (TECFIDE... BID PO 08/31/16 21:00 Hold Multivitamins (Theragran) 1 tab DAILY PO 09/01/16 09:00 09/02/16 09:11 Pravastatin Sodium (Pravachol) 40 mg DAILY PO 09/01/16 09:00 09/02/16 09:13 Valsartan (Diovan) 320 mg DAILY PO 09/01/16 09:00 09/02/16 09:13 Hydrochlorothiazide (Microzide) 12.5 mg DAILY PO 09/01/16 09:00 09/02/16 09:12 Enalaprilat (Vasotec Inj) 1.25 mg Q6H PRN IV PUSH SBP>160, DBP>90 08/31/16 16:00 (Manuela Irby) Medical Decision Making MDM Remarks 71 y/o male s/p L5-S1 PLIF 08/31/16, POD 2, surgical pain controlled, stable (Manuela Irby) Plan Plan Remarks doing well, clinically stable, pain controlled dc home with C PT cont IS at home LSO when out of bed f/u Dr. Sanders office in 3 weeks activity restrictions and wound care discussed (Manuela Irby) Attending Statement The exam, history, and the medical decision-making described in the above note were completed with the assistance of the mid-level provider. I reviewed and agree with the findings presented. I attest that I had a [id number] encounter with the patient on the same day, and personally performed and documented my assessment and findings in the medical record. (Reji Sanders MD) Manuela Irby September 02, 2016 10:51 Reji Sanders MD September 02, 2016 10:53
[2016-09-02 12:00] VITALS: BP 108/54; PULSE 80; RESP 16; TEMP 98.8; O2SAT 98
--- NOTE | 2016-09-02 12:33 | HHI.PR ---
Subjective Remarks patient seen and examined Pain to his back well controlled Objective Vitals Vital Signs Date Time Temp Pulse Resp B/P Pulse Ox O2 Delivery O2 Flow Rate FiO2 09/02/16 10:09 98.9 107 16 127/65 93 09/02/16 06:00 18 09/02/16 04:15 98.6 84 19 137/63 97 09/01/16 23:38 98.7 82 18 117/60 95 09/01/16 22:00 18 09/01/16 20:36 97.8 96 18 130/62 97 09/01/16 19:25 18 09/01/16 18:44 16 09/01/16 16:00 101.0 90 18 119/60 96 I/O 09/01/16 09/01/16 09/01/16 09/02/16 09/02/16 09/02/16 07:00 15:00 23:00 07:00 15:00 23:00 Intake Total 1484 ml 720 ml 1454 ml 816 ml 418 ml Output Total 710 ml 805 ml 100 ml 210 ml 25 ml Balance 774 ml -85 ml 1354 ml 606 ml 393 ml Intake Oral 720 ml 720 ml 480 ml 480 ml IV Total 764 ml 974 ml 336 ml 418 ml Output Urine Total 700 ml 800 ml 100 ml 200 ml Drainage Total 10 ml 5 ml 0 ml 10 ml 25 ml Bladder Scan Volume Amount 263 ml 70 ml 263 ml # Voids 2 2 # Bowel Movements 0 0 0 1 Result Diagram: 09/01/16 0646 09/01/16 0646 Objective Remarks GENERAL: NAD and sitting in a chair SKIN: Warm and dry. HEAD: Normocephalic. EYES: No scleral icterus. No injection or drainage. NECK: Supple, trachea midline. No JVD or lymphadenopathy. CARDIOVASCULAR: Regular rate and rhythm without murmurs, gallops, or rubs. RESPIRATORY: Breath sounds equal bilaterally. No accessory muscle use. GASTROINTESTINAL: Abdomen soft, non-tender, nondistended. MUSCULOSKELETAL: No cyanosis, or edema. TLSO brace in place BACK: Nontender without obvious deformity. No CVA tenderness. A/P Problem List: (1) Back pain ICD Code: M54.9 Status: Acute (2) Benign hypertension ICD Code: I10 Status: Acute (3) Status post laminectomy ICD Code: Z98.89 Status: Acute Assessment and Plan 71-year-old man with Lumbar back pain Status post TLIF and management per orthopedic surgery Continue current care and resume antiplatelet therapy PT to treat and eval. TLSO brace while out of Bed Encourage IS use Hypertension Continue Diovan BPH Currently on Flomax Hyperlipidemia Continue Lipitor DVT prophylaxis: Bilateral SCDs Yousuf Haskins MD September 02, 2016 12:33
== END 2016-09-02 13:33 | disposition home health service (06) | DRG 460 ==
LOC: HSDI 08-31 06:20 → N06A 08-31 15:32
PROVIDERS: ADMIT Neurological Surgery; ATTEND Neurological Surgery
PROC: 0ST40ZZ Resection of Lumbosacral Disc, Open Approach (ICD-10-PCS; 2016-08-31)
PROC: 0SG307J Fusion of Lumbosacral Joint with Autologous Tissue Substitute, Posterior Approach, Anterior Column, Open Approach (ICD-10-PCS; principal; 2016-08-31 08:38)
DX: M47.27 Other spondylosis with radiculopathy, lumbosacral region (principal); I10 Essential (primary) hypertension; E78.5 Hyperlipidemia, unspecified; N99.89 Other postprocedural complications and disorders of genitourinary system; R33.8 Other retention of urine; N40.1 Benign prostatic hyperplasia with lower urinary tract symptoms
CPT/HCPCS: 72040; 76000; 80048; 85025; 86850; 86900; 86901; 94150; C1713; C9113; J0690; J1170; J1580; J2250; J2370; J2405; J3010; J3370; J3480; J7050; J7120; L0484

== ENCOUNTER → 2016-08-23 | Outpatient (CLI) | payer MEDICARE ==
[~2016-08-23] MED LIST: ASPI1TAB69 PO; CHEL50TA PO; CO Q10CA; CO Q200C3 PO; D3400CAP PO; DIME240C PO; DIOV320T3 PO; DIOV80TA4 PO; ESSE250T PO; FISH120014 PO; FISH500C; HYDR-3583 PO; MOBI7.5T PO; MULTCAP3 PO; NEUR300C PO; ROBA750T PO; TAMS5CAP PO; ULTR50TA5 PO; VITA500030 CHEW; WALKER WHEELS/F1 MIS; ZOCO20TA PO
[2016-08-23 11:08] LABS: BASOPHIL % 0.8 % (0.0-2.0); EOSINOPHIL # 0.2 TH/MM3 (0-0.4); EOSINOPHIL % 3.8 % (0.0-4.0); HEMATOCRIT 36.3 % (39.0-51.0); HEMO FLAGS DIFF FINAL; LYMPH % 18.9 % (9.0-44.0); LYMPHOCYTE # 0.9 TH/MM3 (1.0-4.8); MEAN CELL VOLUME 88.8 FL (80.0-100.0); MEAN CORPUSCULAR HEMOGLOBIN 30.3 PG (27.0-34.0); MEAN CORPUSCULAR HGB CONC 34.1 % (32.0-36.0); NEUT % 61.5 % (16.0-70.0); PLATELET COUNT 226 TH/MM3 (150-450); RED BLOOD COUNT 4.09 MIL/MM3 (4.50-5.90); RED CELL DISTRIBUTION WIDTH 13.3 % (11.6-17.2); WHITE BLOOD COUNT 4.8 TH/MM3 (4.0-11.0)
[2016-08-23 11:13] LABS: BLOOD, URINE SMALL (NEG); COMMENT (UR) CULT NOT INDICATED; CULTURE IF INDICATED CULT NOT INDICATED; GLUCOSE,URINE NEG (NEG); KETONE, URINE NEG (NEG); MUCUS URINE FEW /lpf (OCC); NITRITE,URINE NEG (NEG); PH, URINE 5.5 (5.0-8.5); URINE COLOR YELLOW (YELLW/STRAW)
[2016-08-23 11:17] LABS: APTT (PATIENT) 25.3 SEC (24.3-30.1); PROTHROMBIN TIME - PATIENT 11.3 SEC (9.8-11.6)
--- NOTE | 2016-08-23 11:25 | RADRPT ---
EXAM DATE/TIME: 08/23/2016 11:04 [facility] COMPARISON: CHEST PA & LAT, June 13, 2015, 11:16. INDICATIONS : Evaluate for pneumonia, pneumothorax or communicable disease. Pre op for back surgery 08-27-16 MEDICAL HISTORY : None. SURGICAL HISTORY : back surgery 1 year ago ENCOUNTER: Initial ACUITY: 1 day PAIN SCORE: 0/10 LOCATION: Bilateral chest FINDINGS: PA and lateral views of the chest demonstrate the lungs to be symmetrically aerated without evidence of mass, infiltrate or effusion. The cardiomediastinal contours are unremarkable. Osseous structure s are intact. CONCLUSION: No acute disease. Yousuf Brennan MD on August 23, 2016 at 11:22 Board Certified Radiologist. This report was verified electronically.
[2016-08-23 11:40] LABS: ALKALINE PHOSPHATASE 44 U/L (45-117); ALT (GPT) 20 U/L (12-78); ANION GAP 9 MEQ/L (5-15); AST (GOT) 13 U/L (15-37); BICARBONATE 28.5 MEQ/L (21.0-32.0); BLOOD UREA NITROGEN 23 MG/DL (7-18); CHLORIDE 102 MEQ/L (98-107); GLOMERULAR FILTRATION RATE 54 ML/MIN (>89); GLUCOSE,FASTING 101 MG/DL (74-99); POTASSIUM 4.6 MEQ/L (3.5-5.1); SODIUM (NA) 139 MEQ/L (136-145); TOTAL BILIRUBIN ADULT 0.4 MG/DL (0.2-1.0)
--- NOTE | 2016-08-23 16:33 | EKG ---
Date Performed: 08/23/2016 Time Performed: 10:24:42 PTAGE: 71 years EKG: Sinus rhythm RIGHT BUNDLE BRANCH BLOCK ABNORMAL ECG PREVIOUS TRACING : 06/13/2015 10.22 No significant change from previous tracing noted. DOCTOR: Hardeep Fragoso Interpretating Date/Time 08/23/2016 16:30:56
== END ==
LOC: CPRE 10:02
PROVIDERS: ATTEND Neurological Surgery
DX: Z01.812 Encounter for preprocedural laboratory examination (principal); Z01.811 Encounter for preprocedural respiratory examination; Z01.810 Encounter for preprocedural cardiovascular examination; M47.816 Spondylosis without myelopathy or radiculopathy, lumbar region; I45.10 Unspecified right bundle-branch block
CPT/HCPCS: 36415; 71020; 80053; 81001; 85025; 85610; 85730; 93005